=== PATIENT | male | born 1940 | race Caucasian/White ===

== ENCOUNTER 2017-04-03 10:36 | Emergency (ER) | payer MEDICARE, BC ==
[2017-04-03] MEDS ORDERED: HYDROmorphone 0.5 MG/0.5 ML Syringe IVPUSH ONE ×3 (11:22→12:01)
[2017-04-03] MEDS ORDERED: Ondansetron 4 MG/2 ML SDV IVPUSH ONE (11:22)
[2017-04-03] MEDS ORDERED: Sodium Chloride 0.9% 1,000 ML IV SCH (11:30)
--- NOTE | 2017-04-03 11:53 | EDM.PDOC ---
ED HPI GENERAL MEDICAL PROBLEM - General Chief Complaint: General Stated Complaint: FLU? Time Seen by Provider: 04/03/17 11:10 Source of Information: Reports: Patient History Limitations: Reports: No Limitations - History of Present Illness INITIAL COMMENTS - FREE TEXT/NARRATIVE: pt arrived with pain in the mid abdoman. He has not vomited. The pain started quite suddenly this am. Onset: Today, Sudden Duration: Hour(s):, Getting Worse Location: Reports: Abdomen Associated Symptoms: Reports: Other ( severe abdomanal pain) - Related Data Allergies Allergy/AdvReac Type Severity Reaction Status Date / Time amoxicillin [From Augmentin] Allergy Nausea and Verified 04/03/17 11:12 Vomiting clavulanic acid Allergy Nausea and Verified 04/03/17 11:12 [From Augmentin] Vomiting Sulfa (Sulfonamide Allergy Hives Verified 04/03/17 11:05 Antibiotics) Home Meds: Home Meds Aspirin [Halfprin] 1 tab PO DAILY 04/03/17 [History] Fluticasone Propionate [Flonase Allergy Relief] 2 sprays KARI DAILY 04/03/17 [ History] Lisinopril/Hydrochlorothiazide [Lisinopril-Hctz 20-25 mg Tab] 1 tab PO DAILY [History] Multivitamin [Multivitamins] 1 tab PO DAILY 04/03/17 [History] Gordo-3/DHA/Epa/Fish Oil [Fish Oil 1,000 mg Softgel] 1 cap PO DAILY 04/03/17 [ History] Past Medical History HEENT History: Reports: Sinusitis Cardiovascular History: Reports: Hypertension Musculoskeletal History: Reports: Fracture Other Musculoskeletal History: fracture little toe - Infectious Disease History Infectious Disease History: Reports: Chicken Pox, Measles ED ROS GENERAL - Review of Systems Review Of Systems: See Below Constitutional: Reports: No Symptoms HEENT: Reports: No Symptoms Respiratory: Reports: No Symptoms Cardiovascular: Reports: No Symptoms Endocrine: Reports: No Symptoms GI/Abdominal: Reports: Abdominal Pain, Other ( severe mid abdomanal pain. ) : Reports: No Symptoms Musculoskeletal: Reports: No Symptoms Skin: Reports: No Symptoms ED EXAM, GENERAL - Physical Exam Exam: See Below Free Text/Narrative:: PT ARRIVED WITH VERY SEVERE ABDOMANAL PAIN. hE WAS POINTING MID ABDOMAN AROUND THE UMBILIUS AREA. hE STATED THE PAIN WAS INTOLERABLE. HE WAS GIVEN DILAUDID 2 MG AND HE GOT NO RELIEF. HIS EKG SHOWED A MASSIVE INFERIOR LATERAL INFARCT. HE WAS TO HAVE A CAT SCAN OF THE ABDOMAN CHEST. bEFORE HE GOT THERE HE WENT INTO [facility]. Exam Limited By: No Limitations General Appearance: Alert, Anxious, Severe Distress, Other ( pT HAD ABSOLUTELY UNRELIEVED ABDOMANAL PAIN. ) Ears: Normal TMs Nose: Normal Inspection Throat/Mouth: Normal Inspection Head: Atraumatic Neck: Normal Inspection Respiratory/Chest: No Respiratory Distress, Other ( PT IS A SMOKER AND HE DID HAVE SOME WHEEZING. ) Cardiovascular: Regular Rate, Rhythm, Other ( WHEN HE WAS PLACED ON THE MONITOR HE SHOWED MARKED ST ELEVATION. ) GI/Abdominal: Soft, Non-Tender, Other ( pT STILL TALKED ABOUT THE SEVERE PAIN BUT HE STATED IT DID NOT HURT TO PUSH ON. ) (Male) Exam: Deferred Rectal (Males) Exam: Deferred Back Exam: Normal Inspection Extremities: Normal Inspection Neurological: Alert, Oriented, Normal Cognition, Other ( EXTREMELY UNCOMFORTABLE ) Psychiatric: Normal Affect Course - Vital Signs Last Recorded V/S: Last Vital Signs Temp 36.4 C 04/03/17 11:54 Pulse 88 04/03/17 11:54 Resp 15 04/03/17 11:54 BP 167/127 H 04/03/17 11:54 Pulse Ox 95 04/03/17 11:54 - Orders/Labs/Meds Orders: Active Orders 24 hr Category Date Time Status EKG Documentation Completion [RC] ASDIRECTED Care 04/03/17 11:56 Ordered UA W/MICROSCOPIC [URIN] Urgent Lab 04/03/17 11:21 Uncollected Amiodarone [Cordarone] 450 mg Med 04/03/17 12:15 Active Dextrose 5% in Water 241 ml IV ASDIRECTED EPINEPHrine [Adrenalin 1:1000] 1 mg Med 04/03/17 13:00 Active Dextrose 5% in Water 100 ml IV ONETIME Sodium Chloride 0.9% [Normal Saline] 1,000 ml Med 04/03/17 11:30 Active IV ASDIRECTED EKG 12 Lead [EK] Routine Ther 04/03/17 11:56 Ordered Medication Orders Sodium Chloride (Normal Saline) 1,000 mls @ 400 mls/hr IV ASDIRECTED HUMBLE Last Admin: 04/03/17 11:45 Dose: 400 mls/hr Amiodarone HCl 450 mg/ (Dextrose/Water) 250 mls @ 33.33 mls/hr IV ASDIRECTED HUMBLE; 1 MG/MIN PRN Reason: Protocol Epinephrine HCl 1 mg/ Dextrose (/Water) 101 mls @ 6 mls/hr IV ONETIME ONE Stop: 04/04/17 05:49 Labs: Laboratory Tests 04/03/17 04/03/17 04/03/17 Range/Units 11:46 11:46 11:46 WBC 13.1 H (4.5-11.0) K/uL RBC 4.41 (4.30-5.90) M/uL Hgb 14.1 (12.0-15.0) g/dL Hct 40.4 (40.0-54.0) % MCV 92 (80-98) fL MCH 32 H (27-31) pg MCHC 35 (32-36) % Plt Count 347 (150-400) K/uL Neut % (Auto) 77 H (36-66) % Lymph % (Auto) 14 L (24-44) % [place] % (Auto) 7 H (2-6) % Eos % (Auto) 1 L (2-4) % Baso % (Auto) 0 (0-1) % Puncture Site ABG pH (7.350-7.450) ABG pCO2 (35.0-42.0) mmHg ABG pO2 (75.0-100.0) mmHg ABG HCO3 (22.0-26.0) mmol/L ABG Total CO2 (23.0-27.0) mmol/L ABG O2 Saturation (95.0-98.0) % ABG O2 Content (15.0-23.0) %vol ABG Base Excess mm/L ABG Hemoglobin (13.5-18.0) g/dL ABG Oxyhemoglobin % ABG Carboxyhemoglobin (0.0-1.6) % ABG Methemoglobin % Ciro Test O2 Delivery Device Sodium 131 L (140-148) mmol/L Potassium 3.9 (3.6-5.2) mmol/L Chloride 95 L (100-108) mmol/L Carbon Dioxide 24 (21-32) mmol/L Anion Gap 15.9 H (5.0-14.0) mmol/L BUN 24 H (7-18) mg/dL Creatinine 1.2 (0.8-1.3) mg/dL Est Cr Clr Drug Dosing 52.37 mL/min Estimated GFR (MDRD) 59 L (>60) Glucose 139 H (74-106) mg/dL Calcium 9.0 (8.5-10.1) mg/dL Total Bilirubin 0.4 (0.2-1.0) mg/dL AST 18 (15-37) U/L ALT 31 (12-78) U/L Alkaline Phosphatase 94 (46-116) U/L Creatine Kinase (39-308) U/L Troponin I (0.000-0.056) ng/mL C-Reactive Protein 0.19 (0.0-0.3) mg/dL Total Protein 7.2 (6.4-8.2) g/dL Albumin 3.8 (3.4-5.0) g/dL Globulin 3.4 (2.3-3.5) g/dL Albumin/Globulin Ratio 1.1 L (1.2-2.2) Lipase (73-393) U/L 04/03/17 04/03/17 04/03/17 Range/Units 11:51 11:56 13:04 WBC (4.5-11.0) K/uL RBC (4.30-5.90) M/uL Hgb (12.0-15.0) g/dL Hct (40.0-54.0) % MCV (80-98) fL MCH (27-31) pg MCHC (32-36) % Plt Count (150-400) K/uL Neut % (Auto) (36-66) % Lymph % (Auto) (24-44) % [place] % (Auto) (2-6) % Eos % (Auto) (2-4) % Baso % (Auto) (0-1) % Puncture Site Lt brachial ABG pH 6.883 L* (7.350-7.450) ABG pCO2 82.3 H* (35.0-42.0) mmHg ABG pO2 89.3 (75.0-100.0) mmHg ABG HCO3 14.7 L (22.0-26.0) mmol/L ABG Total CO2 15.6 L (23.0-27.0) mmol/L ABG O2 Saturation 85.6 L (95.0-98.0) % ABG O2 Content 15.2 (15.0-23.0) %vol ABG Base Excess -20.5 mm/L ABG Hemoglobin 12.7 L (13.5-18.0) g/dL ABG Oxyhemoglobin 84.4 % ABG Carboxyhemoglobin 0.7 (0.0-1.6) % ABG Methemoglobin 0.7 % Ciro Test Passed O2 Delivery Device Aerosol mask Sodium (140-148) mmol/L Potassium (3.6-5.2) mmol/L Chloride (100-108) mmol/L Carbon Dioxide (21-32) mmol/L Anion Gap (5.0-14.0) mmol/L BUN (7-18) mg/dL Creatinine (0.8-1.3) mg/dL Est Cr Clr Drug Dosing mL/min Estimated GFR (MDRD) (>60) Glucose (74-106) mg/dL Calcium (8.5-10.1) mg/dL Total Bilirubin (0.2-1.0) mg/dL AST (15-37) U/L ALT (12-78) U/L Alkaline Phosphatase (46-116) U/L Creatine Kinase 115 (39-308) U/L Troponin I 0.026 (0.000-0.056) ng/mL C-Reactive Protein (0.0-0.3) mg/dL Total Protein (6.4-8.2) g/dL Albumin (3.4-5.0) g/dL Globulin (2.3-3.5) g/dL Albumin/Globulin Ratio (1.2-2.2) Lipase 156 (73-393) U/L Meds: Medications Generic Name Dose Route Start Last Admin Trade Name Freq PRN Reason Stop Dose Admin Sodium Chloride 1,000 mls @ 400 mls/hr 04/03/17 11:30 04/03/17 11:45 Normal Saline IV 400 mls/hr ASDIRECTED HUMBLE Administration Amiodarone HCl 450 mg/ 250 mls @ 33.33 mls/hr 04/03/17 12:15 Dextrose/Water IV ASDIRECTED HUMBLE Protocol 1 MG/MIN Epinephrine HCl 1 mg/ Dextrose 101 mls @ 6 mls/hr 04/03/17 13:00 /Water IV 04/04/17 05:49 ONETIME ONE Discontinued Medications Generic Name Dose Route Start Last Admin Trade Name Freddy PRN Reason Stop Dose Admin Hydromorphone HCl 0.5 mg 04/03/17 11:22 04/03/17 11:41 Dilaudid IVPUSH 04/03/17 11:23 0.5 mg ONETIME ONE Administration Hydromorphone HCl 0.5 mg 04/03/17 11:48 04/03/17 12:05 Dilaudid IVPUSH 04/03/17 11:49 0.5 mg ONETIME ONE Administration Hydromorphone HCl 0.5 mg 04/03/17 12:01 04/03/17 13:08 Dilaudid IVPUSH 04/03/17 12:02 0.5 mg ONETIME ONE Administration Lorazepam 0.5 mg 04/03/17 11:54 04/03/17 12:05 Ativan IVPUSH 04/03/17 11:55 0.5 mg ONETIME ONE Administration Ondansetron HCl 4 mg 04/03/17 11:22 04/03/17 11:41 Zofran IVPUSH 04/03/17 11:23 4 mg ONETIME ONE Administration - Re-Assessments/Exams Free Text/Narrative Re-Assessment/Exam: 04/03/17 13:36 PT WAS DEFIBRILLATED ABOUT 15 TIMES. hE WAS BAGGED DURING THAT TIME. tHE ANNALEE WAS PLACED ON THE PT AND CPR WAS CONTINUED. hE DID REGAIN RHYTHMS BUT THEY WERE NOT PERFUSING. hE WAS GIVEN EPI MULTIPLE TIMES AND A EPINEPHRINE DRIP WAS STARTED. HE HAD THE LOADING DOSE OF AMIRODERONE AND A DRIP WAS STARTED. hE WAS GIVEN BICARB 2 AMPS.HE WAS GIVEN 2 GM OF MAGNESIUM. aT THIS POINT HE DEVELOPED A RHYTHM THAT WAS PERFUSING WITH A RATE OF 50. iT DID DROP IN THE 40S TWICE AND HE ENDED UP WITH 1 MG OF ATROPINE, hE WAS GIVEN SUCCULCHOLINE 200MG. HIS TONGUE WAS SWOLLEN AND INTUBATION WAS DIFFICULT. a KHADRA TUBE WAS PLACED AND GOOD OXGENATION WAS ATTAINED. HE HAD A [facility] CATH INSERTED. aIR CARE WAS IN THE AIR BEFORE HE ARRESTED. tHEY ARRIVED AND HE WAS TRANSFERED. 04/03/17 13:43 CARDIAC MEDS WERE NOT GIVEN TO THE PT BECAUSE OF THE SEVERE ABDOMANAL PAIN AND CONCERN ABOUT AN ANEUYISM OR DISECTION. Departure - Departure Time of Disposition: 13:00 Disposition: DC/Tfer to Acute Hospital 02 Condition: Fair Clinical Impression: Acute CT inferior lateral first episode care, Sudden onset of severe abdominal pain - Discharge Information Referrals: Gilmer Preciado MD [Primary Care Provider] - Forms: ED Department Discharge Care Plan Goals: [facility]. - My Orders Last 24 Hours: My Active Orders 04/03/17 11:21 UA W/MICROSCOPIC [URIN] Urgent 04/03/17 11:30 Sodium Chloride 0.9% [Normal Saline] 1,000 ml IV ASDIRECTED 04/03/17 11:56 EKG Documentation Completion [RC] ASDIRECTED EKG 12 Lead [EK] Routine 04/03/17 12:15 Amiodarone [Cordarone] 450 mg Dextrose 5% in Water 241 ml IV ASDIRECTED 04/03/17 13:00 EPINEPHrine [Adrenalin 1:1000] 1 mg Dextrose 5% in Water 100 ml IV ONETIME - Assessment/Plan Last 24 Hours: My Active Orders 04/03/17 11:21 UA W/MICROSCOPIC [URIN] Urgent 04/03/17 11:30 Sodium Chloride 0.9% [Normal Saline] 1,000 ml IV ASDIRECTED 04/03/17 11:56 EKG Documentation Completion [RC] ASDIRECTED EKG 12 Lead [EK] Routine 04/03/17 12:15 Amiodarone [Cordarone] 450 mg Dextrose 5% in Water 241 ml IV ASDIRECTED 04/03/17 13:00 EPINEPHrine [Adrenalin 1:1000] 1 mg Dextrose 5% in Water 100 ml IV ONETIME
[2017-04-03] MEDS ORDERED: LORazepam 2 MG/ML MDV IVPUSH ONE (11:54)
[2017-04-03] MEDS ORDERED: Amiodarone 150 MG/3 ML SDV IVPUSH ONE ×2 (12:11→12:22)
[2017-04-03] MEDS ORDERED: EPINEPHrine 1:10,000 1 MG/10 ML Syringe IV ONE ×4 (12:22→12:49)
[2017-04-03] MEDS ORDERED: Succinylcholine 200 MG/10 ML MDV IV ONE (12:22)
[2017-04-03] MEDS ORDERED: Magnesium Sulfate (4.06 MEQ/ML) 1 GM/2 ML SDV IV ONE (12:29)
[2017-04-03] MEDS ORDERED: Sodium Bicarbonate 8.4% 50 MEQ/50 ML Syringe IV ONE ×2 (12:29→12:52)
[2017-04-03] MEDS ORDERED: Morphine 2 MG/ML Syringe IV ONE (12:29)
[2017-04-03] MEDS ORDERED: Atropine 0.1 MG/ML 10 ML Syringe IV ONE ×2 (12:31→12:39)
[2017-04-03] MEDS ORDERED: Amiodarone 150 MG/3 ML SDV IV ONE (12:36)
[2017-04-03] MEDS ORDERED: EPINEPHrine 1 MG in Dextrose 5% in Water 100 ML IV ONE ×2 (13:00)
--- NOTE | 2017-04-03 15:34 | ANES ---
DATE OF SERVICE: 04/03/2017 A 76-year-old gentleman in the emergency room in cardiac arrest. I was asked by Dr. Suazo to place a permanent airway. Upon arrival, they are treating his arrest. He has a Kameron tube in. A bougie was passed down the Kameron tube and under direct vision, after the Kameron tube was removed, I looked and could see the bougie going through the vocal cords. Therefore #8 endotracheal tube was passed over the bougie, through the larynx, and into the lungs. He ventilated bilaterally well. His SaO2 quickly went up into the 90s. He was suctioned, the endotracheal tube was attached with their permanent device and also at this time, I was asked to stick an NG tube in, it was passed easily through the left naris into the stomach with bile colored material coming back out. Fernando Peter CRNA /[id number]
--- NOTE | 2017-04-03 16:18 | PCM.SN ---
- Free Text/Narrative Note: Mr. Orozco is a 76-year-old gentleman who presented to the emergency department with severe abdominal pain. While in the emergency department developed acute cardiac arrest I responded to the code to assist Dr. Suazo in management. EKG had been obtained prior to the cardiac arrest which I reviewed personally and showed evidence of an acute ST segment elevation myocardial infarction involving the anterolateral and inferior brown. He received defibrillation multiple times in addition to use of IV amiodarone and IV epinephrine. At times during the code developed slow heart rates that were treated with epinephrine and atropine. At the time patient left for transfer to tertiary care center he had a stable rhythm and adequate blood pressure. He was intubated during the code 5 MrNayely Peter from the anesthesia service. One hour of critical care time was spent in the direct care and management of this patient in the emergency department.
== END 2017-04-03 13:00 ==
LOC: JP.ED 10:36
DX: I21.9 Acute myocardial infarction, unspecified (principal); R10.9 Unspecified abdominal pain; I10 Essential (primary) hypertension; Z88.1 Allergy status to other antibiotic agents; Z88.2 Allergy status to sulfonamides; Z79.82 Long term (current) use of aspirin
CPT/HCPCS: 36415; 36600; 51702; 80053; 82550; 82803; 83690; 84484; 85025; 86140; 92950; 93005; 93010; 96361; 96374; 96375; 99284; J0171; J0282; J0330; J0461; J1170; J2060; J2405; J3475; J7040; J7060